=== PATIENT | female | born 1985 | race Caucasian/White ===

== ENCOUNTER 2022-05-14 08:38 | Emergency (ER) | payer MEDICAID, OTHER ==
[~2022-05-14] VITALS: Ht 165.1 cm; Wt 63.0 kg
[2022-05-14] MEDS ORDERED: LAMOTRIGINE 100MG TABLET PO STA (10:19)
[2022-05-14] MEDS ORDERED: TOPIRAMATE 25MG TABLET PO STA (10:19)
[2022-05-14 10:27] LABS: BASOPHILS % 0.2 % (0.0-2.0); CHLORIDE 111 mEq/L (98-107); EOSINOPHILS % 0.4 % (0.0-5.0); HEMATOCRIT. 42.3 % (36.0-48.0); HEMOGLOBIN. 14.4 g/dL (12.0-16.0); LYMPHOCYTES % 9.9 % (20.0-50.0); MEAN CORPUSCULAR HEMOGLOBIN 33.5 pg (28.0-32.0); MEAN CORPUSCULAR VOLUME 98.5 fL (81.0-99.0); MEAN PLATELET VOLUME 8.3 fl (7.4-10.4); MONOCYTES % 4.7 % (2.0-8.0); NEUTROPHILS % 84.8 % (40.0-76.0); PLATELET 248 x1000/uL (130-400); RED BLOOD CELL COUNT 4.29 mill/uL (4.2-5.4); RED CELL DISTRIBUTION WIDTH 13.1 % (11.6-14.6)
[2022-05-14] MEDS ORDERED: ACETAMINOPHEN 325MG TABLET PO ONE (10:30)
[2022-05-14 10:36] LABS: ETHANOL BLOOD < 10 mg/dL
[2022-05-14 11:09] LABS: HCG SCREEN NEGATIVE
[2022-05-14 19:48] VITALS: BP 116/72
== END 2022-05-14 19:53 | disposition home or self-care (01) ==
LOC: ER 08:38
DX: G40.509 Epileptic seizures related to external causes, not intractable, without status epilepticus (principal)
CPT/HCPCS: 36415; 80053; 80320; 84703; 85025; 99283; G0480